=== PATIENT | female | born 1990 | race Hispanic/Latino ===

== ENCOUNTER 2018-02-10 10:02 | Inpatient (IN) | payer OTHER ==
[~2018-02-10] VITALS: Ht 154.9 cm; Wt 70.8 kg
[~2018-02-10 10:02] MED LIST: KETOROLAC TROME10 M1 PO; ZOFRAN ODT4 M1 SL
[2018-02-10 11:04] LABS: ABSOLUTE BASOPHIL COUNT 0 /CUMM (0.0-0.2); ABSOLUTE EOSINOPHIL COUNT 0.1 /CUMM (0.0-0.7); ABSOLUTE GRANULOCYTE CT 6.9 /CUMM (1.4-6.5); ABSOLUTE LYMPH COUNT 1.8 /CUMM (1.2-3.4); ABSOLUTE MONOCYTE COUNT 0.5 /CUMM (0.10-0.60); BASOPHIL % 0.3 % (0.0-2.0); EOSINOPHIL % 0.7 % (0-5); GRANULOCYTE % 74.1 % (42.2-75.2); MEAN CORPUSCULAR HGB 29.5 PG (27.0-31.0); MEAN CORPUSCULAR VOLUME 86.7 FL (81.0-99.0); MEAN PLATELET VOLUME 7.7 FL (7.4-10.4); PLATELET COUNT 373 /CUMM (130-400); RBC DISTRIBUTION WIDTH 13.3 % (11.5-14.5); RED BLOOD CELL CT 3.57 /CUMM (4.20-5.40); WHITE BLOOD CELL COUNT 9.3 /CUMM (4.8-10.8)
--- NOTE | 2018-02-10 21:39 | Labor & Delivery Summary ---
Delivery Summary Vaginal Delivery: Vaginal: vertex Episiotomy/Lacerations: Episiotomy/Lacerations: epis Type: rml Repair: layered 3-0 Anesthesia: epi Placenta: Placenta: normal, 3 vessel, manual, nuchal cord (x_) Anesthesia: epi Baby's Weight: 8/1 Apgars - 1 Min: 9 Apgars - 5 Min: 9 Additional Comments: retained placenta manual extraction in roon then D&C in OR
[2018-02-11 03:01] VITALS: BP 91/73
--- NOTE | 2018-02-11 09:19 | History & Physical Pre-Op ---
General Information and HPI History of Present Illness: 27-year-old 2 para 2 status post vaginal delivery with retained placenta and manual extraction in the delivery room however is felt that there are remnants in the fundus of the uterus. Tissue being taken to the operative room for a D&C. 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 EENTM: Reports: no symptoms. Cardiovascular: Reports: no symptoms. Respiratory: Reports: no symptoms. GI: Reports: no symptoms. Genitourinary: Reports: no symptoms. Musculoskeletal: Reports: no symptoms. Skin: Reports: no symptoms. Neurological/Psychological: Reports: no symptoms. Hematologic/Endocrine: Reports: no symptoms. Immunologic/Allergic: Reports: no symptoms. All Other Systems: Reviewed and Negative Exam & Diagnostic Data Last 24 Hrs of Vital Signs/I&O Vital Signs Date Time Temp Pulse Resp B/P B/P Pulse O2 O2 Flow FiO2 Mean Ox Delivery Rate 02/11 0301 91/73 Physical Exam: Fundus firm Extremities nontender Chest clear to auscultation Assessment/Plan Assessment/Plan: Retained placenta status post vaginal delivery Plan: D&C As Ranked By This Provider Problem List: 1.
--- NOTE | 2018-02-11 09:22 | Operative Report ---
Operative/Inv Procedure Report Surgery Date: 02/10/18 Name of Procedure: D&C Pre-Operative Diagnosis: Retained placenta Post-Operative Diagnosis: Same Estimated Blood Loss: scant Surgeon/Blister Rust Eradicator: Darrell Austin MD Anesthesia: epidural Operative/Procedure Note Note: The patient is brought to the operating room and placed on the OR table in the supine position. She was then placed into dorsal lithotomy and prepped and draped. Examination under anesthesia revealed a constricted uterus and cervix with possible choanal even in the fundus. Sharp curettage was performed revealing clot the patient was then reexamined and hemostasis was good. She was then transferred back to labor and delivery room in good condition. All counts were correct.
[2018-02-11 09:47] LABS: ABSOLUTE BASOPHIL COUNT 0.1 /CUMM (0.0-0.2); ABSOLUTE EOSINOPHIL COUNT 0 /CUMM (0.0-0.7); ABSOLUTE GRANULOCYTE CT 12.3 /CUMM (1.4-6.5); ABSOLUTE LYMPH COUNT 1.9 /CUMM (1.2-3.4); ABSOLUTE MONOCYTE COUNT 0.8 /CUMM (0.10-0.60); BASOPHIL % 0.4 % (0.0-2.0); EOSINOPHIL % 0.1 % (0-5); GRANULOCYTE % 81.4 % (42.2-75.2); HEMATOCRIT 31.4 % (37-47); MEAN CORPUSCULAR HGB 29.4 PG (27.0-31.0); MEAN CORPUSCULAR HGB CONC 33.6 G/DL (33.0-37.0); MEAN CORPUSCULAR VOLUME 87.6 FL (81.0-99.0); PLATELET COUNT 337 /CUMM (130-400); RBC DISTRIBUTION WIDTH 13.2 % (11.5-14.5); RED BLOOD CELL CT 3.59 /CUMM (4.20-5.40)
[2018-02-11 09:59] LABS: WHITE BLOOD CELL COUNT 15.1 /CUMM (4.8-10.8)
--- NOTE | 2018-02-11 14:09 | PN- Post Delivery/GYN ---
Subjective Subjective: no c/o Review of Systems: neg Objective Last 24 Hrs of Vital Signs/I&O Vital Signs Date Time Temp Pulse Resp B/P B/P Pulse O2 O2 Flow FiO2 Mean Ox Delivery Rate 02/11 0301 91/73 Physical Exam: ff ext nt Assessment/Plan Assessment/Plan s/p ppd1 stable cpm Problem List: 1.
[2018-02-12] MEDS ORDERED: IBUPROFEN800 M1 PO (08:13)
== END 2018-02-12 09:10 | DRG 541 ==
LOC: GNO 10:02
PROVIDERS: Obstetrics & Gynecology
PROC: 0W8NXZZ Division of Female Perineum, External Approach (ICD-10-PCS; principal; 2018-02-10)
PROC: 10E0XZZ Delivery of Products of Conception, External Approach (ICD-10-PCS; principal; 2018-02-10)
PROC: 10D17ZZ Extraction of Products of Conception, Retained, Via Natural or Artificial Opening (ICD-10-PCS; 2018-02-11)
DX: O72.2 Delayed and secondary postpartum hemorrhage (principal); O70.9 Perineal laceration during delivery, unspecified; O69.81X0 Labor and delivery complicated by cord around neck, without compression, not applicable or unspecified; O98.82 Other maternal infectious and parasitic diseases complicating childbirth; B95.1 Streptococcus, group B, as the cause of diseases classified elsewhere; Z3A.39 39 weeks gestation of pregnancy; Z37.0 Single live birth
CPT/HCPCS: GNOP; GNOS; 36415; 81003; J0131; J1885; J2405; J2765; J2790; J7120